=== PATIENT | female | born 1995 | race Caucasian/White ===

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

== ENCOUNTER 2018-01-03 08:12 | Outpatient (RCR) | payer MEDICAID ==
[~2018-01-03 08:12] MED LIST changes: +CEPHALEXIN500 M1 PO
[2018-01-22] MEDS ORDERED: PRENATAL1 TA7 PO (09:16)
[2018-01-22] MEDS ORDERED: NORCO 325 MG-51 TAB PO (09:42)
== END 2018-04-03 | disposition home or self-care (01) ==
LOC: MKS.ESL.PT
DX: M54.9 Dorsalgia, unspecified (principal); Z33.1 Pregnant state, incidental; Z91.81 History of falling

== ENCOUNTER 2018-01-22 09:04 | Emergency (ER) | payer MEDICAID ==
[~2018-01-22] VITALS: Ht 172.7 cm; Wt 112.9 kg
[2018-01-22 09:13] VITALS: BP 136/64; TEMP 98.5
[2018-01-22] MEDS ORDERED: PRENATAL1 TA7 PO (09:16)
[2018-01-22] MEDS ORDERED: NORCO 325 MG-51 TAB PO (09:42)
[2018-01-22 10:17] VITALS: PULSE 82
== END 2018-01-22 10:20 | disposition home or self-care (01) ==
LOC: COL.ER 09:04
DX: O99.89 Other specified diseases and conditions complicating pregnancy, childbirth and the puerperium (principal); M54.31 Sciatica, right side; Z3A.13 13 weeks gestation of pregnancy

== ENCOUNTER 2018-03-04 13:02 | Emergency (ER) | payer MEDICAID ==
[~2018-03-04] VITALS: Ht 175.3 cm; Wt 115.9 kg
[~2018-03-04 13:02] MED LIST changes: +NORCO 325 MG-51 TAB PO; +PRENATAL1 TA7 PO
[2018-03-04 13:03] VITALS: BP 133/61; TEMP 98.1
[2018-03-04 13:19] LABS: COLLECTION METHOD CLEAN CATCH
[2018-03-04 13:31] LABS: MUCOUS Present /lpf; PH 5 (5-8); URINE APPEARANCE Cloudy; URINE BACTERIA Rare /hpf; URINE BILIRUBIN Negative (NEGATIVE); URINE BLOOD Negative (NEGATIVE); URINE COLOR Yellow; URINE GLUCOSE Negative (NEGATIVE); URINE KETONE Negative (NEGATIVE); URINE LEUKOCYTE ESTERASE 1+ (NEGATIVE); URINE NITRATE Negative (NEGATIVE); URINE PROTEIN(semi-quant) 1+ (NEGATIVE); URINE UROBILINOGEN Negative (NEGATIVE)
[2018-03-04 14:01] VITALS: PULSE 88
== END 2018-03-04 14:05 | disposition home or self-care (01) ==
LOC: COL.ER 13:02
PROVIDERS: Family Medicine
DX: O99.89 Other specified diseases and conditions complicating pregnancy, childbirth and the puerperium (principal); R10.2 Pelvic and perineal pain; Z3A.19 19 weeks gestation of pregnancy

== ENCOUNTER 2024-05-21 05:31 | Inpatient (IN) | payer MEDICAID ==
[~2024-05-21] VITALS: Ht 172.7 cm; Wt 169.5 kg
[2024-05-21] VITALS (19 sets, daily range): BP systolic 91–137; BP diastolic 41–80; PULSE 68–99; TEMP 97.8–98.8
[~2024-05-21 05:31] MED LIST changes: +LR 1,000 ML IV SCH; +Ondansetron 4 MG/2 ML VIAL IV SCH
--- NOTE | 2024-05-21 05:40 | NUR ---
Pt ambulatory to 210 for scheduled with significant other. Clean gown on. EFM and TOCO explained applied. Pt denies contractions, leaking of fluids or vaginal bleeding. Reports good movement. Plan of care explained.
[2024-05-21 06:33] LABS: BASO % 0.4 % (0.0-2.0); EOS # 0.2 K/mm3 (0.0-0.7); EOS % 1.5 % (0.0-4.0); GRAN # 6.7 K/mm3 (1.4-6.5); GRAN % 67.4 % (42.2-75.2); HEMOGLOBIN 10.5 g/dl (12.5-16.0); LYMPH # 2.5 K/mm3 (1.2-3.4); LYMPH % 24.5 % (20.0-51.0); MEAN CELL VOLUME 82 fl (80.0-100.0); MEAN CORPUSCULAR HEMOGLOBIN 26 pg (27-31); MEAN CORPUSCULAR HGB CONC 32 g/dl (33.0-37.0); MEAN PLATELET VOLUME 9.8 fl (7.4-10.4); MONO # 0.6 K/mm3 (0.1-0.6); MONO % 5.7 % (1.7-9.3); PLATELET COUNT 299 K/mm3 (130-400); RED BLOOD COUNT 4.02 M/mm3 (4.10-5.30); REDCELL DISTRIBUTION WIDTH-CV 15.8 % (11.5-14.5)
[2024-05-21 06:34] LABS: HEMATOCRIT 32.8 % (37.0-47.0)
[2024-05-21 06:51] LABS: TRICYCLIC ANTIDEPRESS URINE NEGATIVE (NEGATIVE)
[2024-05-21 06:52] LABS: ALBUMIN 2.7 g/dL (3.5-5.0); BILIRUBIN,TOTAL 0.3 mg/dL (0.2-1.2); CALCIUM 9.1 mg/dL (8.4-10.2); CREATININE, serum 0.63 mg/dL (0.57-1.11); POTASSIUM 3.8 mEq/L (3.5-4.5); TOTAL PROTEIN 6.3 g/dl (6.2-8.1)
[2024-05-21] MEDS ORDERED: NS 10 ML IV ONE (07:04)
[2024-05-21] MEDS ORDERED: Oxytocin 10 UNITS/ML VIAL ONE (07:04)
[2024-05-21] MEDS ORDERED: Ondansetron 4 MG/2 ML VIAL ONE (07:04)
[2024-05-21] MEDS ORDERED: Ketorolac 30 MG/ML VIAL ONE (07:04)
--- NOTE | 2024-05-21 08:03 | NUR ---
PT REPEAT C/S. TRAXI ABDOMINAL LIFT APPLIED AND WILL REMAIN IN PLACE FOR 24 HOURS. DELIVERY OF INFANT VIA C/S WITH VACUUM EXTRACTION PER ASSISTED BY .
[2024-05-21] MEDS ORDERED: Phenylephrine 10 MG/ML VIAL ONE (08:27)
[2024-05-21] MEDS ORDERED: LR 1,000 ML IV ONE (08:27)
[2024-05-21] MEDS ORDERED: LR 1,000 ML IV PRN (08:45)
[2024-05-21] MEDS ORDERED: Acetaminophen 500 MG TAB PO SCH (08:45)
[2024-05-21] MEDS ORDERED: Magnes Hydrox (MOM) 80 MG/ML 30 ML CUP PO PRN (08:45)
[2024-05-21] MEDS ORDERED: Measles/Mumps/Rubella Virus Vaccine Live w Diluent 0.5 ML VIAL SQ SCH (08:45)
[2024-05-21] MEDS ORDERED: Loratadine 10 MG TAB PO PRN (08:45)
[2024-05-21] MEDS ORDERED: Ondansetron 4 MG/2 ML VIAL IV PRN (08:45)
[2024-05-21] MEDS ORDERED: Morphine 4 MG/ML VIAL IV PRN (08:45)
[2024-05-21] MEDS ORDERED: Naloxone 0.4 MG/ML VIAL IV PRN (08:45)
[2024-05-21] MEDS ORDERED: oxyCODONE 5 MG TAB PO PRN (08:45)
[2024-05-21] MEDS ORDERED: Ibuprofen 600 MG TAB PO SCH (14:40)
[2024-05-21] MEDS ORDERED: Sennosides/Docusate 8.6-50 MG TAB PO SCH (17:00)
[2024-05-21] MEDS ORDERED: traZODone 50 MG TAB PO PRN (21:00)
--- NOTE | 2024-05-22 00:05 | NUR ---
PT GETTING UP TO BATHROOM WITHOUT DIFFICULTY. VOIDING WELL. IV SITE DC'D. PAIN WELL CONTROLLED WITH MED, BUT STILL HAVING PAIN IN RT SHOULDER. STATES SHE HAS NOT PASSED FLATUS YET. SIMETHICONE GIVEN PER REQUEST.
--- NOTE | 2024-05-22 02:40 | NUR ---
PT C/O SHARP RT RIB PAIN STARTING WHEN SHE JUST GOT UP TO THE BATHROOM. STATES IT AT TIMES RADIATES TO RT SHOULDER. STILL HAS NOT PASSED FLATUS. SCHEDULED PAIN MEDS AND ROXICODONE GIVEN. PT GIVEN WARM WATER TO DRINK PER REQUEST.
[2024-05-22 04:35] VITALS: BP 118/50; PULSE 95; TEMP 99
[2024-05-22 05:17] LABS: HEMOGLOBIN 10.2 g/dl (12.5-16.0)
[2024-05-22 05:30] LABS: HEMATOCRIT 32.1 % (37.0-47.0)
[2024-05-22] MEDS ORDERED: TYLENOL 500MG500 MG PO (07:41)
[2024-05-22] MEDS ORDERED: ROXICODONE 55 MG/TAB PO (07:41)
[2024-05-22] MEDS ORDERED: IBU600 MG PO (07:41)
[2024-05-22 09:04] VITALS: BP 131/78; PULSE 88
--- NOTE | 2024-05-22 11:33 | NUR ---
SW received consult due to patient testing positive for marijuana and daily vaping during . Patient tested negative for drugs at admission for delivery of baby boy. SW met with patient to complete assessment. FOB asleep on the floor of patient's room. Patient states that she lives in [place] with Father of Baby (FOB) Cinda Miller ([phone]) and her three young children ages 6, 4, and 2. Patient states her only physician that she sees is Dr. Heredia. She states "I'm never sick, so I don't go to the doctor." Patient uses [facility] without difficulty. Patient has [place] Medicaid insurance. She is currently receiving [facility] services. Patient informed of reason for consult being a positive drug test during . Patient stated that she has not used marijuana since her positive test in February 2024 and states she will not return to using. 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 Patient does admit to daily vaping. Patient is currently employed at [employer] on [address] and FOB is employed at [employer] in [place]. Her mother, who lives in [place] helps with babysitting the young children when she needs help and she has a paid psychology assistant when necessary. Patient denies any difficulty affording food, rent, utilities or car. Patient reports having all provisions for baby at home to include clothes, car seat, swings, bed, pack n play, stollers, bottles, diapers, wipes, floor mats for tummy time, etc. Patient is planning to breast feed baby. Patient was provided with packet of resources to include drug/alcohol resources, [facility] resources, Maternal Child contact information. DCF report made for positive drug test. Report #[id number].
[2024-05-22 16:00] VITALS: BP 113/56; PULSE 94
[2024-05-22 19:30] VITALS: BP 126/54; PULSE 89; TEMP 97.9
--- NOTE | 2024-05-22 19:30 | NUR ---
Discharge teaching videos offered, including Period of Purple Crying. Patient reports this is not their first child together, and they have both seen the video. Decline videos at this time.
[2024-05-23 02:24] VITALS: BP 107/51; PULSE 90; TEMP 98.5
[2024-05-23 08:30] VITALS: BP 136/84; PULSE 94; TEMP 98.2
--- NOTE | 2024-05-23 09:49 | NUR ---
Initial visit: Patient thanked Freight Brake Operator for offering congratulations and God's blessings for the of her son. Freight Brake Operator thanked mom for choosing [facility] and was glad to hear that having her baby here has been a good experience for her.
--- NOTE | 2024-05-23 10:12 | NUR ---
ALL DC PAPERWORK AND FOLLOW UP APPOINTMENTS REVIEWED AND UNDERSTOOD. DENIES FURTHER QUESTIONS OR CONCERNS. AMBULATORY FROM UNIT IN STABLE CONDITION AT THIS TIME.
== END 2024-05-23 10:12 | disposition home or self-care (01) | DRG 788 ==
LOC: OB 05:31
PROVIDERS: ADMIT Obstetrics & Gynecology
PROC: 10D00Z1 Extraction of Products of Conception, Low, Open Approach (ICD-10-PCS; principal; 2024-05-21)
PROC: 0DNU0ZZ Release Omentum, Open Approach (ICD-10-PCS; 2024-05-21)
DX: O34.211 Maternal care for low transverse scar from previous cesarean delivery (principal); O99.824 Streptococcus B carrier state complicating childbirth; O99.013 Anemia complicating pregnancy, third trimester; D64.9 Anemia, unspecified; O99.213 Obesity complicating pregnancy, third trimester; O99.891 Other specified diseases and conditions complicating pregnancy; N73.6 Female pelvic peritoneal adhesions (postinfective); O24.425 Gestational diabetes mellitus in childbirth, controlled by oral hypoglycemic drugs; Z3A.39 39 weeks gestation of pregnancy; Z37.0 Single live birth
CPT/HCPCS: A9284; J0665; J0690; J1885; J2371; J2405; J2590; J2765; J7120